=== PATIENT | female | born 1930 | race Caucasian/White ===

== ENCOUNTER 2019-03-10 13:06 | Emergency (ER) | payer MEDICARE, OTHER ==
[2019-03-10] MEDS ORDERED: Sodium Chloride 0.9% 1000 ML 1,000 ML ONE (14:00)
[2019-03-10] MEDS ORDERED: Sodium Chloride 0.9% 1000 ML 1,000 ML IV SCH (14:00)
--- NOTE | 2019-03-10 14:03 | ERPHSYRPT ---
- History of Present Illness Time Seen by Provider: 03/10/19 13:30 Source: patient Exam Limitations: clinical condition Patient Subjective Stated Complaint: RIGHT MID BACK/ FLANK PAIN. STATES IT STARTED LAST MONDAY AND HAS PROGRESSIVELY GOTTEN WORSE. PAIN 07/02. STATES SHE DID NOT TAKE ANYTHING TO HELP. Triage Nursing Assessment: ALERT AND ORIENTED. FORGETFUL. ABLE TO AMBULATE TO ROOM. NON PRODUCTIVE COUGH HEARD. RIGHT LUNG SOUNDS WHEEZES/DIMISHED; LEFT SIDE DIMINISHED. FACIAL GRIMACE WITH MOVEMENT. Physician History: PATIENT COMPLAINS OF RIGHT FLANK PAIN OVER THE PAST 2-4 DAYS. DENIES URINARY SYMPTOMS, FREQUENCY, URGENCY, DYSURIA, FEVER, NAUSEA OR EMESIS. HAS A HISTORY OF CHRONIC LOW BACK PAIN. DENIES RADIATION OF PAIN INTO LEGS, NUMBNESS, TINGLING OR WEAKNESS IN EXTREMITIES. Timing/Duration: day(s) Method of Injury: other (DENIES INJURY OR TRAUMA) Quality: sharp Severity of Pain-Max: mild Severity of Pain-Current: mild Modifying Factors: Improves With: nothing Associated Symptoms: denies symptoms Previous symptoms: other (HISTORY OF CHRONIC LOW BACK PAIN) Allergies/Adverse Reactions: No Known Drug Allergies Allergy (Unverified 03/25/15 15:31) Home Medications: Galantamine Hydrobromide 8 mg* [Razadyne ER 8 MG] 8 mg PO DAILY 03/25/15 [ History] Hx Tetanus, Diphtheria Vaccination/Date Given: Yes Hx Influenza Vaccination/Date Given: No Hx Pneumococcal Vaccination/Date Given: No - Review of Systems Constitutional: No Fever, No Chills Eyes: No Symptoms Ears, Nose, & Throat: No Symptoms Respiratory: No Symptoms, No Cough, No Dyspnea Cardiac: No Symptoms, No Chest Pain, No Edema, No Syncope Abdominal/Gastrointestinal: No Symptoms, No Abdominal Pain, No Nausea, No Vomiting, No Diarrhea Genitourinary Symptoms: No Symptoms, No Dysuria Musculoskeletal: Back Pain, No Neck Pain Skin: No Rash Neurological: No Dizziness, No Focal Weakness, No Sensory Changes Psychological: No Symptoms Endocrine: No Symptoms All Other Systems: Reviewed and Negative - Past Medical History Pertinent Past Medical History: Yes Neurological History: No Pertinent History ENT History: No Pertinent History Cardiac History: No Pertinent History Respiratory History: Asthma Endocrine Medical History: No Pertinent History Musculoskeletal History: Arthritis GI Medical History: No Pertinent History History: No Pertinent History Psycho-Social History: No Pertinent History Female Reproductive Disorders: No Pertinent History Other Medical History: SKIN CANCER IN PAST. BEGINING DEMENTIA - Past Surgical History Past Surgical History: No Neuro Surgical History: No Pertinent History Cardiac: No Pertinent History Respiratory: No Pertinent History Gastrointestinal: No Pertinent History Genitourinary: No Pertinent History Musculoskeletal: No Pertinent History Female Surgical History: No Pertinent History - Social History Smoking Status: Never smoker Exposure to second hand smoke: No Drug Use: none Patient Lives Alone: No - Female History Hx Now: No - Nursing Vital Signs Nursing Vital Signs: Initial Vital Signs Temperature 98.2 F 03/10/19 13:20 Pulse Rate 76 03/10/19 13:20 Respiratory Rate 18 03/10/19 13:20 Blood Pressure 183/81 03/10/19 13:20 O2 Sat by Pulse Oximetry 95 03/10/19 13:20 Pain Scale Pain Intensity 4 - Physical Exam General Appearance: no apparent distress, alert Eye Exam: PERRL/EOMI, eyes nml inspection Neck Exam: normal inspection, non-tender, supple, full range of motion, No meningismus, No midline tenderness Respiratory Exam: normal breath sounds, lungs clear, No respiratory distress Cardiovascular Exam: regular rate/rhythm, normal heart sounds Gastrointestinal Exam: soft, normal bowel sounds, pulsatile mass (NONTENDER), No tenderness, No mass Extremity Exam: normal inspection, normal range of motion, tenderness (RIGHT CVA TENDERNESS), No calf tenderness, No pedal edema Peripheral Pulses: carotid (R): 2+, carotid (L): 2+, femoral (R): 2+, femoral (L ): 2+, dorsalis-pedis (R): 2+, dorsalis-pedis (L): 2+ Neurologic Exam: alert, oriented x 3, cooperative, food and beverage controller II-XII nml as tested, normal mood/affect, nml station & gait, sensation nml, No motor deficits Skin Exam: normal color, warm, dry, No rash SpO2 Interpretation: normal SpO2: 95 - Radiology Exams Chest X-ray Interpretation: Interpreted by me (RIGHT BASILAR INFILTRATE) - CT Exams Abdomen/Pelvis CT Interpretation: Tele-radiologist Report (COLONIC DIVERTICULITIS WITHOUT EVIDENCE OF ACUTE DIVERTICULITIS, CHRONIC OR HEALING FRACTURES OF THE RIGHT SUPERIOR AND INFERIOR PUBIC RAMI AND LIKELY CHRONIC FRACTURE LEFT PUBIC BONE AND LEFT SUPERIOR PUBIC RAMUS, NO VISIBLE FRACTURE, ) Ordered Tests: Active Orders 24 hr Category Date Time Status ABDOMEN AND PELVIS W CONTRAST [CT] Stat Exams 03/10/19 13:53 Taken CHEST 1 VIEW (PORTABLE) Stat Exams 03/10/19 13:52 Taken AMYLASE Stat Lab 03/10/19 14:18 Completed BLOOD CULTURE Stat Lab 03/10/19 15:43 Received CBC W DIFF Stat Lab 03/10/19 14:18 Completed CMP Stat Lab 03/10/19 14:18 Completed LIPASE Stat Lab 03/10/19 14:18 Completed UA W/RFX UR CULTURE Stat Lab 03/10/19 14:18 Completed Peak Expiratory Flow Rate ONCE RT 03/10/19 14:16 Completed Respiratory Therapy Assessment DAILY RT 03/10/19 14:14 Completed Medication Summary Generic Name Dose Route Start Last Admin Trade Name Freq PRN Reason Stop Dose Admin Albuterol/Ipratropium 3 ml 03/10/19 15:00 03/10/19 14:14 Duoneb 0.5-3 Mg/3 Ml Neb IH 04/09/19 14:59 3 ml QIDRT DAYNA Administration Sodium Chloride 1,000 mls @ 100 mls/hr 03/10/19 14:00 03/10/19 14:07 Sodium Chloride 0.9% 1000 Ml IV 04/09/19 13:59 100 mls/hr .Q10H DAYNA Administration Discontinued Medications Generic Name Dose Route Start Last Admin Trade Name Freq PRN Reason Stop Dose Admin Levofloxacin/Dextrose 500 mg in 100 mls @ 100 mls/hr 03/10/19 15:13 03/10/19 15:32 Levofloxacin 500mg/100ml D5w IV 03/10/19 16:12 100 mls/hr STAT STA 100 mls/hr Administration Levofloxacin/Dextrose Confirm 03/10/19 15:15 Levofloxacin 500mg/100ml D5w Administered 03/10/19 15:16 Dose 500 mg in 100 mls @ ud IV .STK-MED ONE Lab/Rad Data: Laboratory Result Diagrams 03/10/19 14:18 03/10/19 14:18 Laboratory Results 03/10/19 03/10/19 03/10/19 Range/Units 14:18 14:18 14:18 WBC 8.1 (4.0-10.5) K/mm3 RBC 4.24 (4.1-5.4) M/mm3 Hgb 13.1 (12.0-16.0) gm/dl Hct 41.4 (35-47) % MCV 97.6 (78-100) fl MCH 30.9 (26-32) pg MCHC 31.6 L (32-36) g/dl RDW 14.2 H (11.5-14.0) % Plt Count 167 (150-450) K/mm3 MPV 11.7 H (6-9.5) fl Gran % 73.1 H (36.0-66.0) % Eos # (Auto) 0.25 (0-0.5) Absolute Lymphs (auto) 1.24 (1.0-4.6) Absolute Monos (auto) 0.64 (0.0-1.3) Lymphocytes % 15.4 L (24.0-44.0) % Monocytes % 8.0 (0.0-12.0) % Eosinophils % 3.1 (0.00-5.0) % Basophils % 0.4 (0.0-0.4) % Absolute Granulocytes 5.89 (1.4-6.9) Basophils # 0.03 (0-0.4) Sodium 140 (137-145) mmol/L Potassium 4.2 (3.5-5.1) mmol/L Chloride 104 (98-107) mmol/L Carbon Dioxide 28 (22-30) mmol/L Anion Gap 12.0 (5-15) MEQ/L BUN 24 H (7-17) mg/dL Creatinine 0.66 (0.52-1.04) mg/dL Estimated GFR > 60.0 ML/MIN Glucose 119 H (74-106) mg/dL Calcium 9.2 (8.4-10.2) mg/dL Total Bilirubin 0.30 (0.2-1.3) mg/dL AST 29 (14-36) U/L ALT 16 (0-35) U/L Alkaline Phosphatase 93 (38-126) U/L Serum Total Protein 7.3 (6.3-8.2) g/dL Albumin 3.5 (3.5-5.0) g/dL Amylase 98 (30-110) U/L Lipase 146 (23-300) U/L Urine Color YELLOW (YELLOW) Urine Appearance CLEAR (CLEAR) Urine pH 6.0 (5-6) Ur Specific [place] 1.018 (1.005-1.025) Urine Protein 30 (Negative) Urine Ketones NEGATIVE (NEGATIVE) Urine Blood NEGATIVE (0-5) Vasquez/ul Urine Nitrite NEGATIVE (NEGATIVE) Urine Bilirubin NEGATIVE (NEGATIVE) Urine Urobilinogen NEGATIVE (0-1) mg/dL Ur Leukocyte Esterase NEGATIVE (NEGATIVE) Urine WBC (Auto) 6-10 (0-5) /HPF Urine RBC (Auto) NONE (0-2) /HPF U Epithel Cells (Auto) RARE (FEW) /HPF Urine Bacteria (Auto) RARE (NEGATIVE) /HPF Urine Mucus (Auto) SLIGHT (NEGATIVE) /HPF Urine Culture Reflexed NO (NO) Urine Glucose NEGATIVE (NEGATIVE) mg/dL Slides for Path Review YES - Progress Progress Note: 03/10/19 14:05 IV NORMAL SALINE 100ML/HR, LEVAQUIN 500MG IVPB AFTER 2 SETS OF BLOOD CULTURES OBTAINED 03/10/19 16:46 Counseled pt/family regarding: lab results, diagnosis, need for follow-up, rad results - Departure Departure Disposition: Home Clinical Impression: ACUTE BRONCHITIS, ACUTE RENAL COLIC, URINARY TRACT INFECTION Condition: Stable Critical Care Time: No Referrals: MOISÉS ANDREWS [Primary Care Provider] - Additional Instructions: TAKE TYLENOL OR MOTRIN NEEDED FOR PAIN. ANTIBIOTIC LEVAQUIN 500MG DAILY FOR 10 DAYS. DRINK PLENTY OF FLUIDS. CONSULT YOUR PRIMARY CARE PROVIDER FOR FOLLOWUP. Prescriptions: Levofloxacin [Levaquin] 500 mg PO DAILY #10 tablet
[2019-03-10] MEDS ORDERED: DUONEB 0.5-3 MG/3 ml Neb IH ONE (14:09)
[2019-03-10 14:22] LABS: BASOPHIL % 0.4 % (0.0-0.4); Basophil (Absolute #) 0.03 (0-0.4); Eosinophil % 3.1 % (0.00-5.0); Eosinophil (Absolute #) 0.25 (0-0.5); Granulocyte Absolute (ANC) 5.89 (1.4-6.9); Granulocytes % 73.1 % (36.0-66.0); Hematocrit 41.4 % (35-47); Hemoglobin 13.1 gm/dl (12.0-16.0); Lymphocyte (Absolute #) 1.24 (1.0-4.6); Lymphocytes % 15.4 % (24.0-44.0); Mean Cell Volume 97.6 fl (78-100); Mean Corpuscular Hemoglobin 30.9 pg (26-32); Mean Corpuscular Hgb Concent. 31.6 g/dl (32-36); Mean Platelet Volume 11.7 fl (6-9.5); Monocyte (Absolute #) 0.64 (0.0-1.3); Platelet Count 167 K/mm3 (150-450); Red Blood Count 4.24 M/mm3 (4.1-5.4); Red Cell Distribution Width 14.2 % (11.5-14.0); White Blood Count 8.1 K/mm3 (4.0-10.5)
[2019-03-10 14:25] LABS: Appearance CLEAR (CLEAR); Bacteria RARE /HPF (NEGATIVE); Bilirubin NEGATIVE (NEGATIVE); Blood NEGATIVE Ery/ul (0-5); Epithelial Cells RARE /HPF (FEW); Glucose NEGATIVE (NEGATIVE); Ketones NEGATIVE (NEGATIVE); Leukocyte Esterase NEGATIVE (NEGATIVE); Mucus SLIGHT /HPF (NEGATIVE); Nitrite NEGATIVE (NEGATIVE); Protein,Urine Dip 30 (Negative); Specific Gravity 1.018 (1.005-1.025); Urobilinogen NEGATIVE mg/dL (0-1)
[2019-03-10 14:31] LABS: ALBUMIN 3.5 g/dL (3.5-5.0); ALKALINE PHOSPHATASE 93 U/L (38-126); AMYLASE 98 U/L (30-110); BLOOD UREA NITROGEN 24 mg/dL (7-17); CHLORIDE 104 mmol/L (98-107); Calcium 9.2 mg/dL (8.4-10.2); Carbon Dioxide 28 mmol/L (22-30); Creatinine 1 0.66 mg/dL (0.52-1.04); Glucose 119 mg/dL (74-106); LIPASE 146 U/L (23-300); Potassium 4.2 mmol/L (3.5-5.1); SGOT/AST 29 U/L (14-36); SGPT/ALT 16 U/L (0-35); SODIUM 140 mmol/L (137-145); Total Protein 7.3 g/dL (6.3-8.2)
[2019-03-10 14:47] LABS: Slide Review 1 YES
[2019-03-10] MEDS ORDERED: DUONEB 0.5-3 MG/3 ml Neb IH SCH (15:00)
[2019-03-10] MEDS ORDERED: Levofloxacin 500MG/100ML D5W 500 MG/100 ML BAG IV STA (15:13)
[2019-03-10] MEDS ORDERED: Levofloxacin 500MG/100ML D5W 500 MG/100 ML BAG IV ONE (15:15)
[2019-03-10 16:57] VITALS: BP 173/79; PULSE 62; O2SAT 96
--- NOTE | 2019-03-10 22:08 | XRAY ---
Indication: Cough. Back pain following fall. Comparison: None Portable chest hyperinflated with right base infiltrate/atelectasis, scattered fibrosis/scarring, and and left sided calcified pleural plaquing. Heart is borderline enlarged. Bony thorax demonstrates osteopenia, degenerative changes, old right 7 rib fracture, and double curvature thoracolumbar scoliosis. Impression: 1. Right base infiltrate/atelectasis. Correlate clinically. 2. Borderline cardiomegaly without CHF. 3. Scattered fibrosis/scarring and left-sided calcified pleural plaquing.
--- NOTE | 2019-03-10 22:11 | XRAY ---
Indication: Right-sided pain following fall. Multiple contiguous axial images obtained through the abdomen and pelvis using 80 cc Isovue 370 contrast only. Comparison: None Lung bases demonstrates [id number]-like opacities, pneumonitis versus mucous plugging. Also bibasilar fibrosis/scarring. No consolidation or effusion. Heart is borderline enlarged. Noncontrasted stomach and bowel loops appear nonobstructed. Scattered sigmoid diverticulosis. Suture material in the right lower quadrant presumed appendectomy. No free fluid/air. Calcified hepatic/splenic granulomas. 1 cm left renal cortical cyst. Remaining liver, gallbladder, pancreas, spleen, adrenal glands, kidneys, ureters, bladder, and uterus appear unremarkable. Moderate scattered vascular calcifications. No AAA or pathologic retroperitoneal lymphadenopathy. Osseous structures demonstrate osteopenia, mild levorotoscoliosis, and mild/moderate multilevel degenerative spondylosis including L4 grade 1 spondylolisthesis. Also nondisplaced healing right inferior pubic ramus fracture and old left pubic symphysis fracture. Impression: 1. Bibasilar tree-in-bud like opacities, pneumonitis versus mucous plugging. 2. Sigmoid diverticulosis, left renal cyst, and evidence for old granulomatous disease. 3. Nondisplaced healing right inferior pubic ramus fracture. 4. Osteopenia, multilevel degenerative spondylosis, grade 1 L4 spondylolisthesis, scoliosis, and old left pubic symphysis fracture. Comment: Preliminary interpretation was made by [facility]. No critical discrepancy. CTDI 9.48
== END 2019-03-10 17:08 | disposition home or self-care (01) ==
LOC: ED 13:06
DX: J20.9 Acute bronchitis, unspecified (principal); N23 Unspecified renal colic; N39.0 Urinary tract infection, site not specified; Z79.899 Other long term (current) drug therapy
CPT/HCPCS: 36000; 36415; 71045; 74177; 80053; 81001; 82150; 83690; 85025; 87040; 94150; 94640; 96360; 96361; 96365; 96374; 99284; J1956; A9270-GY